=== PATIENT | female | born 1945 | race Two or more races ===

== ENCOUNTER 2022-05-23 12:05 | Outpatient (CLI) | payer OTHER | END 2022-05-23 13:00 | disposition home or self-care (01) | LOC: ASH CLINIC 12:05 | PROVIDERS: ATTEND General Practice | DX: U07.1 COVID-19 (principal) ==

== ENCOUNTER 2023-01-19 09:48 | Emergency (ER) | payer OTHER ==
[~2023-01-19] VITALS: Ht 156.2 cm; Wt 73.9 kg
[2023-01-19] MEDS ORDERED: AVAPRO150 MG (10:13)
[2023-01-19] MEDS ORDERED: DILTIAZEM HCL120 MG (10:14)
[2023-01-19] MEDS ORDERED: ZIPSOR25 MG (10:14)
[2023-01-19] MEDS ORDERED: DICLOFENAC SODI75 MG PO (11:31)
== END 2023-01-19 11:41 | disposition home or self-care (01) ==
LOC: ER 09:48
DX: S22.31XA Fracture of one rib, right side, initial encounter for closed fracture (principal); W18.30XA Fall on same level, unspecified, initial encounter; Y93.9 Activity, unspecified; Y92.009 Unspecified place in unspecified non-institutional (private) residence as the place of occurrence of the external cause; Y99.9 Unspecified external cause status

== ENCOUNTER 2024-11-03 11:44 | Emergency (ER) | payer OTHER ==
[~2024-11-03] VITALS: Ht 167.6 cm; Wt 68.0 kg
[~2024-11-03 11:44] MED LIST: AVAPRO150 MG; DICLOFENAC SODI75 MG PO; DILTIAZEM HCL120 MG; ZIPSOR25 MG
[2024-11-03] MEDS ORDERED: PEPCID AC20 MG PO (12:14)
[2024-11-03] MEDS ORDERED: AZITHROMYCIN 500 MG TABLET PO ONE (12:30)
[2024-11-03] MEDS ORDERED: LEVALBUTEROL HCL 1.25 MG/3 ML SOLUTION IH SCH (12:30)
[2024-11-03] MEDS ORDERED: GUAIFENESIN/DEXTROMETHORPHAN 10ML BLIST.PACK PO ONE (12:30)
[2024-11-03] MEDS ORDERED: METHYLPREDNISOLONE SOD SUCC 125 MG VIAL IV ONE (12:30)
[2024-11-03 12:46] LABS: HEMATOCRIT 41.6 % (36.0-45.00); HEMOGLOBIN 13.8 g/dL (12.0-15.00); MEAN CORPUSCULAR HEMOGLOBIN 30.6 pg (27.00-32.0); MEAN CORPUSCULAR HGB CONC 33.3 g/dl (32.0-36.0); PLATELET COUNT 215 K/uL (150-450); RED BLOOD COUNT 4.52 M/uL (4.00-6.00); RED CELL DISTRIBUTION WIDTH 13.7 % (11.5-14.5)
[2024-11-03 13:07] LABS: ALBUMIN 3.9 gm/dL (3.4-5.0); BILIRUBIN TOTAL 0.5 mg/dL (0.3-1.2); CALCIUM 9.7 mg/dL (8.5-10.1); CREATININE SERUM 0.88 mg/dL (0.55-1.02); GFR 62.14; GLOBULINA 3.1 G/DL (2.4-3.5); POTASSIUM 4.35 mEq/L (3.5-5.1)
[2024-11-03] MEDS ORDERED: OSELTAMIVIR PHOSPHATE 75 MG CAPSULE PO ONE (13:15)
[2024-11-03] MEDS ORDERED: MEDROLPACK PO (14:16)
[2024-11-03] MEDS ORDERED: TUSNEL LIQUID178 ML PO (14:16)
[2024-11-03] MEDS ORDERED: XOPENEX CO1.25 MG/0. IH (14:16)
[2024-11-03] MEDS ORDERED: OSEL75CA PO (14:17)
== END 2024-11-03 14:29 | disposition home or self-care (01) ==
LOC: ER 11:44
PROVIDERS: General Practice
DX: J10.1 Influenza due to other identified influenza virus with other respiratory manifestations (principal); R05.9 Cough, unspecified; Z20.822 Contact with and (suspected) exposure to COVID-19
CPT/HCPCS: 36415; 71250; 94640; 96365; 99284; J3490

== ENCOUNTER 2024-12-07 17:03 | Emergency (ER) | payer OTHER ==
[~2024-12-07] VITALS: Ht 154.9 cm; Wt 74.8 kg
[~2024-12-07 17:03] MED LIST changes: +MEDROLPACK PO; +OSEL75CA PO; +PEPCID AC20 MG PO; +TUSNEL LIQUID178 ML PO; +XOPENEX CO1.25 MG/0. IH
[2024-12-07] MEDS ORDERED: MECLIZINE HCL 25 MG TABLET PO ONE ×2 (17:30→17:57)
[2024-12-07 18:24] LABS: HEMATOCRIT 42.5 % (36.0-45.00); HEMOGLOBIN 14.2 g/dL (12.0-15.00); MEAN CELL VOLUME 91.8 fL (80.00-100.00); MEAN CORPUSCULAR HEMOGLOBIN 30.7 pg (27.00-32.0); MEAN CORPUSCULAR HGB CONC 33.5 g/dl (32.0-36.0); PLATELET COUNT 357 K/uL (150-450); RED BLOOD COUNT 4.63 M/uL (4.00-6.00); RED CELL DISTRIBUTION WIDTH 13.7 % (11.5-14.5)
[2024-12-07 18:50] LABS: BILIRUBIN TOTAL 0.34 mg/dL (0.3-1.2); CALCIUM 9.8 mg/dL (8.5-10.1); CREATININE SERUM 0.85 mg/dL (0.55-1.02); GFR 64.68; GLOBULINA 3.3 G/DL (2.4-3.5); POTASSIUM 3.89 mEq/L (3.5-5.1); TOTAL PROTEIN 7.3 gm/dL (6.4-8.2)
[2024-12-07] MEDS ORDERED: MEDI-MECLIZINE25 MG PO (20:34)
== END 2024-12-07 21:10 | disposition home or self-care (01) ==
LOC: ER 17:03
PROVIDERS: General Practice
DX: R42 Dizziness and giddiness (principal)